=== PATIENT | male | born 1950 | race Caucasian/White ===

== ENCOUNTER 2016-09-14 23:57 | Inpatient (IN) | payer MEDICAID ==
[~2016-09-14] VITALS: Ht 177.8 cm; Wt 65.0 kg
[~2016-09-14 23:57] MED LIST: ACYCLOVIR800 MG PO; ALBUTEROL0.09 MG/A2 IH; ANUHCS PR; ASPIR 8181 MG PO; AZITHROMYCIN250 M1; CAP50 PO; CAPOTEN50 MG PO; COLACE100 MG PO; FEOSOL45 MG PO; FOLIC ACID1 MG PO; GLIPIZIDE5 MG PO; ISONIAZID300 MG PO; METFORMIN HCL850 MG PO; METHOTREXATE2.5 M2 PO; METP PO; MYL80 CH; NATURAL IRON65 MG PO; NEU300 PO; NORCO1 TA1 PO; OMEPRAZOLE DR20 M1 PO; PRILOSEC20 MG PO; PROAIR HFA0.09 MG/A1; PYRIDOXINE HCL50 MG PO; SIMVASTATIN10 M1 PO
[2016-09-15] VITALS (7 sets, daily range): BP systolic 114–161; BP diastolic 60–96
[2016-09-15 00:42] LABS: BASOPHIL % 0.3 % (0-2); PLATELET COUNT 473 x10^3mcL (130-400); RED CELL DISTRIBUTION WIDTH 19.9 % (11.5-14.5)
[2016-09-15 00:55] LABS: CARBON DIOXIDE 26.3 mmol/L (21-32); CHLORIDE SERUM 102 mmol/L (98-107); CREATININE SERUM 1.1 mg/dL (0.7-1.3); GFR1 > 60 mL/min; GLUCOSE SERUM 242 mg/dL (74-106); SODIUM SERUM 138 mmol/L (136-145)
[2016-09-15 01:11] LABS: ALKALINE PHOSPHATASE 78 U/L (46-116); ALT/SGPT 19 U/L (16-63); AST/SGOT 10 U/L (15-37); BILIRUBIN TOTAL 0.2 mg/dL (0.20-1.00)
[2016-09-15 01:12] LABS: ALBUMIN 3.2 g/dL (3.4-5.0); TOTAL PROTEIN, SERUM 8.3 g/dL (6.4-8.2)
[2016-09-15 01:13] LABS: CK-MB 0.6 ng/mL (0-3.6)
[2016-09-15 01:44] LABS: UA SPECIFIC GRAVITY >=1.030 (1.005-1.035); microscopic required? YES; urine erythrocyte 1+ (NEGATIVE)
[2016-09-15 04:22] LABS: CHOLESTEROL/HDL RATIO 3.7; MAGNESIUM 1.3 mg/dL (1.8-2.4)
[2016-09-15 04:23] LABS: FREE T4 1.23 ng/dL (0.76-1.46); FREE THYROXINE INDEX 2.7 ug/dL (1.4-4.5); T4(THYROXINE) 7.6 ug/dL (4.7-13.3)
[2016-09-15 05:07] LABS: T3 TOTAL 0.9 ng/mL
[2016-09-16 05:48] VITALS: BP 116/56
[2016-09-16 06:24] LABS: CALCIUM 8.6 mg/dL (8.5-10.1); CARBON DIOXIDE 23.3 mmol/L (21-32); CHLORIDE SERUM 106 mmol/L (98-107); GFR1 > 60 mL/min; GLUCOSE SERUM 175 mg/dL (74-106); MAGNESIUM 1.6 mg/dL (1.8-2.4); PHOSPHOROUS 3.8 mg/dL (2.5-4.9); POTASSIUM SERUM 4.6 mmol/L (3.5-5.1); SODIUM SERUM 137 mmol/L (136-145)
[2016-09-16 06:36] LABS: PLATELET COUNT 299 x10^3mcL (130-400)
[2016-09-16 07:49] LABS: BASOPHIL % 0 % (0-2); RED CELL DISTRIBUTION WIDTH 19.9 % (11.5-14.5)
[2016-09-16 09:00] VITALS: BP 139/66
[2016-09-16 10:52] LABS: rbc morphology (normal/abnorm) ABNORMAL (NORMAL)
[2016-09-16 12:50] VITALS: BP 139/76
[2016-09-16 16:51] VITALS: BP 142/70
[2016-09-16 17:41] LABS: PLATELET COUNT 392 x10^3mcL (130-400)
[2016-09-16 17:48] LABS: BASOPHIL % 0 % (0-2); RED CELL DISTRIBUTION WIDTH 20.4 % (11.5-14.5)
[2016-09-16 21:44] VITALS: BP 147/75
[2016-09-17 05:58] VITALS: BP 123/73
[2016-09-17 06:19] LABS: BASOPHIL % 0.2 % (0-2); PLATELET COUNT 383 x10^3mcL (130-400)
[2016-09-17 06:40] LABS: CALCIUM 9.2 mg/dL (8.5-10.1); CARBON DIOXIDE 23.2 mmol/L (21-32); CHLORIDE SERUM 104 mmol/L (98-107); CREATININE SERUM 1.1 mg/dL (0.7-1.3); GFR1 > 60 mL/min; GLUCOSE SERUM 156 mg/dL (74-106); MAGNESIUM 2.3 mg/dL (1.8-2.4); PHOSPHOROUS 5.1 mg/dL (2.5-4.9); POTASSIUM SERUM 4.7 mmol/L (3.5-5.1); SODIUM SERUM 138 mmol/L (136-145)
[2016-09-17 08:30] VITALS: BP 141/71
[2016-09-17 12:21] VITALS: BP 150/92
[2016-09-17] MEDS ORDERED: LEVAQUIN750 MG PO (14:03)
[2016-09-17] MEDS ORDERED: CLINDAMYCIN HC300 MG PO (14:04)
[2016-09-17] MEDS ORDERED: LAC PO (14:05)
[2016-09-17] MEDS ORDERED: PROVENTIL0.09 MG/A1 INH (14:07)
[2016-09-17 14:21] VITALS: BP 150/92
== END 2016-09-17 16:15 | disposition home or self-care (01) | DRG 137 ==
LOC: ED 23:57 → MU 09-15 03:38 → DU 09-15 03:38 → MU 09-17 08:14
PROVIDERS: Emergency Medicine; ADMIT Family Medicine
DX: J69.0 Pneumonitis due to inhalation of food and vomit (principal); J96.01 Acute respiratory failure with hypoxia; N17.0 Acute kidney failure with tubular necrosis; E44.0 Moderate protein-calorie malnutrition; E83.42 Hypomagnesemia; D68.69 Other thrombophilia; E11.65 Type 2 diabetes mellitus with hyperglycemia; M94.0 Chondrocostal junction syndrome [Tietze]; K80.20 Calculus of gallbladder without cholecystitis without obstruction; F10.21 Alcohol dependence, in remission; M62.50 Muscle wasting and atrophy, not elsewhere classified, unspecified site; D50.9 Iron deficiency anemia, unspecified; Z86.11 Personal history of tuberculosis; Z79.84 Long term (current) use of oral hypoglycemic drugs; Z87.11 Personal history of peptic ulcer disease; Z68.20 Body mass index [BMI] 20.0-20.9, adult
CPT/HCPCS: 36600; 82962; 83880; 84439; 94150; C9113; J1956; J3475; J3490; J7030; J7620; Q0092; Q9967

== ENCOUNTER 2017-11-17 09:11 | Emergency (ER) | payer MEDICAID ==
[~2017-11-17] VITALS: Ht 180.3 cm; Wt 74.8 kg
[~2017-11-17 09:11] MED LIST changes: +CLINDAMYCIN HC300 MG PO; +LAC PO; +LEVAQUIN750 MG PO; +PROVENTIL0.09 MG/A1 INH
[2017-11-17 09:17] VITALS: Ht 180.3 cm; Wt 74.8 kg
[2017-11-17 11:17] VITALS: BP 118/76
== END 2017-11-17 11:17 | disposition home or self-care (01) ==
LOC: ED 09:11
DX: R10.30 Lower abdominal pain, unspecified (principal); K21.9 Gastro-esophageal reflux disease without esophagitis; I10 Essential (primary) hypertension; E11.9 Type 2 diabetes mellitus without complications

== ENCOUNTER 2018-08-10 19:02 | Inpatient (IN) | payer MEDICAID ==
[~2018-08-10] VITALS: Ht 177.8 cm; Wt 72.6 kg
--- NOTE | 2018-08-10 19:14 | NUR ---
PT'S CARE ASSUMED AT THIS TIME.
[2018-08-10 19:54] LABS: CALCIUM 9.2 mg/dL (8.5-10.1); CARBON DIOXIDE 27.4 mmol/L (21-32); CREATININE SERUM 1.3 mg/dL (0.7-1.3); POTASSIUM SERUM 4.3 mmol/L (3.5-5.1)
[2018-08-10 19:59] LABS: ALBUMIN 3.4 g/dL (3.4-5.0); BILIRUBIN TOTAL 0.14 mg/dL (0.20-1.00); TOTAL PROTEIN, SERUM 7.5 g/dL (6.4-8.2)
--- NOTE | 2018-08-10 20:20 | NUR ---
PT AAOX3, VSS, SPEAKS IN FULL CLEAR SENTENCES, BREATHING EASY AND UNLABORED. PT REPORTA RELIEF FROM PAIN POST MED ADMINISTRATION AT THIS TIME. NO OBVIOUS SIGNS OF DISTRESS. WILL CONTINUE TO MONITOR. DAUGHTER REMAINS AT BEDSIDE.
[2018-08-10 20:28] LABS: BASOPHIL % 0.5 % (0-2); PLATELET COUNT 321 x10^3mcL (130-400)
[2018-08-10 20:29] LABS: RED CELL DISTRIBUTION WIDTH 17.3 % (11.5-14.5)
--- NOTE | 2018-08-10 20:57 | NUR ---
PT ADMITTED (TELE) - REPORT CALLED TO MARGARITA CONN. OPPORTUNITY GIVEN TO ASK QUESTIONS. PT BEING TRANSFERRED TO FLOOR BY RN. PT'S CARE COMPLETED AT THIS TIME BY THIS RN.
[2018-08-10 21:21] LABS: CHOLESTEROL/HDL RATIO 3.5; MAGNESIUM 1.6 mg/dL (1.8-2.4); PHOSPHOROUS 3.5 mg/dL (2.5-4.9)
[2018-08-10 21:26] LABS: microscopic required? YES; urine erythrocyte 1+ (NEGATIVE)
[2018-08-10 21:27] VITALS: BP 141/66
[2018-08-10 21:27] LABS: T3 TOTAL 0.84 ng/mL
--- NOTE | 2018-08-10 21:27 | NUR ---
PATIENT RECEIVED FROM ED VIA [facility]ERNEY ACCOMPANIED BY RN AND WITH DAUGHTER. PATIENT ASSISTED IN BED AND MADE COMFORTABLE. INTRODUCE SELF AND UPHOLSTERY SEWER, PATIENT ACQUIANTED TO BEDSIDE EQUIPMENTS AND UNIT POLICIES. CALL LIGHT PLACED IN REACH.VP CONSTRUCTION APPLIED TP CHEST, TELE#12 NSR, PATIENT INFORMED ABOUT PURPOSE OF VP CONSTRUCTION. SAFETY PRECAUTIONS INITIATED. DENIES CHEST PAINS THIS TIME. WILL CONTINUE TO MONITOR.
[2018-08-10 21:28] LABS: FREE T4 1.01 ng/dL (0.76-1.46); FREE THYROXINE INDEX 2.6 ug/dL (1.4-4.5); T4(THYROXINE) 7.1 ug/dL (4.7-13.3)
--- NOTE | 2018-08-10 21:28 | NUR ---
PT SEEN SITTING ON THE EDGE OF THE BED, CAME IN DUE TO DIZZINESS AND CHEST PAIN. AAOX4. DENIES HEADACHE/DIZZINESS. NO FACIAL DROOP. SPEECH IS CLEAR. NO SOB NOTED, O2 SAT=95%, RA. DENIES CHEST PAIN/PRESSURE, NSR ON THE MONITOR. W/ RLE TRACE EDEMA AND +1 EDEMA ON LLE. W/ LUE DEFORMITY, W/ LIMITED ROM ON LUE. 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 ABDOMEN IS SOFT. BOWEL SOUNDS ACTIVE. VOIDS. IV SITE ON THE RFA GAUGE 20 IS PATENT AND INTACT. SIDE RAILS UPX2. CALL LIGHT ON REACH. DAUGHTER AT BEDSIDE. PRIMARY NURSE MARGARITA AT BEDSIDE FOR CONTINUITY OF CARE
[2018-08-10 21:31] VITALS: Ht 177.8 cm; Wt 72.6 kg
[2018-08-10] MEDS ORDERED: METFORMIN HCL850 MG PO (21:34)
[2018-08-10] MEDS ORDERED: GLUCOTROL5 MG PO (21:34)
[2018-08-10] MEDS ORDERED: NEU300 PO (21:35)
[2018-08-10] MEDS ORDERED: CAPTOPRIL50 MG PO (21:35)
[2018-08-10] MEDS ORDERED: FERROUS SULFAT325 M2 PO (21:35)
[2018-08-10] MEDS ORDERED: RANITIDINE HCL150 M1 PO (21:35)
[2018-08-10 21:37] LABS: AMPHETAMINE QUAL UR NONE DETECTED (See below)
--- NOTE | 2018-08-10 22:13 | NUR ---
DR CASON AT BEDSIDE, UPDATING PATIENT AND DAUGHTER ABOUT TREATMENT PLANS.
--- NOTE | 2018-08-10 22:35 | NUR ---
MAG OX 1 TAB GIVEN FOR MAG LEVEL 1.6. PATIENT AND DAUGHTER INFORMED ABOUT PURPOSE .TOOK PILLS WELL.
--- NOTE | 2018-08-11 | NUR ---
PATIENT RESTING COMFORTABLY THIS TIME. DENIED CHEST PAINS, SR ON THE MONITOR. REFUSED NEURONTIN. SAFETY MAINTAINED. WILL CONTINUE TO MONITOR.
--- NOTE | 2018-08-11 02:14 | NUR ---
RESTING COMFORTABLY THIS TIME NO DISTRESS. SR ON THE MONITOR. WILL CONTINUE TO MONITOR.
--- NOTE | 2018-08-11 04:04 | NUR ---
patient had a run of v-tach at 0250 and was just reported by monitor to me just now, patient bp checked was 114/59, map=74, hr=73, patient denied chest discomforts nor pain, showed strip to dr. lundberg. will continue to monitor.
[2018-08-11 05:26] VITALS: BP 117/57
--- NOTE | 2018-08-11 05:56 | NUR ---
PATIENT STATED SLEPT WELL AND RESTED GOOD SINCE ARRIVAL TO THE FLOOR. DENIED CHEST PAINS, NSR ON THE MONITOR. HEPLOCK FLUSHED WELL.SAFETY PRECAUTION OBSERVED AND MAINTAINED. WILL ENDORSE CONTINUITY OF CARE TO INCOMING NURSE.
[2018-08-11 06:15] LABS: CARBON DIOXIDE 26.5 mmol/L (21-32); CREATININE SERUM 1.3 mg/dL (0.7-1.3); MAGNESIUM 1.5 mg/dL (1.8-2.4); POTASSIUM SERUM 4.4 mmol/L (3.5-5.1)
[2018-08-11 06:17] LABS: BASOPHIL % 0.9 % (0-2); PLATELET COUNT 283 x10^3mcL (130-400)
[2018-08-11 06:26] LABS: RED CELL DISTRIBUTION WIDTH 16.9 % (11.5-14.5)
--- NOTE | 2018-08-11 07:09 | NUR ---
BEDSIDE REPORT AND HANDS OFF PERFORMED WITH INCOMING NURSE CASIE.
--- NOTE | 2018-08-11 07:30 | NUR ---
PATIENT RESTING IN BED, PATIENT DENIES CHEST PAIN. TELE MONITOR IN PLACE. NO ACUTE RESP DISTRESS NOTED, PATIENT ON ROOM AIR. GENERALIZED WEAKNESS NOTED. IV TO RFA SALINE LOCK, NO REDNESS, SWELLING OR PAIN NOTED. CALL LIGHT WITHIN REACH, BED IN LOW POSITION, WILL CONTINUE TO MONITOR FOR CHANGES.
--- NOTE | 2018-08-11 09:03 | NUR ---
HELD CAPTOPRIL, PATIENT DBP <70. DR SPANGLER AWARE. WILL CONTINUE TO MONITOR PATIENT. CALL LIGHT WITHIN REACH, BED IN LOW POSITION FOR SAFETY PRECAUTION.
[2018-08-11 09:41] VITALS: BP 127/64
--- NOTE | 2018-08-11 12:28 | NUR ---
HELD CAPTOPRIL PATIENT DBP <70. BP: 128/62 HR:66 MAP: 73. DR SPANGLER AWARE. NO ACUTE DISTRESS NOTED. PATIENT DENIES PAIN. CALL LIGHT WITHIN REACH, BED IN LOW POSITION FOR SAFETY PRECAUTION. WILL CONTINUE TO MONITOR FOR CHANGES.
[2018-08-11 12:29] VITALS: BP 124/65
[2018-08-11 15:21] VITALS: BP 124/65
[2018-08-11 17:25] VITALS: BP 127/69
--- NOTE | 2018-08-11 18:10 | NUR ---
PATIENT WAS DISCHARGE HOME, DAUGHTER AT SIDE. NO ACUTE CHANGES THROUGH OUT SHIFT, PATIENT IS STABLE, AND DENIES PAIN AT THIS TIME. PATIENT WAS TAKEN DOWN VIA WHEELCHAIR WITH DIRECTOR FUNDRAISING, FOR SAFETY PRECAUTION. PATIENT RECEIVED COPY OF DISCHARGE INSTRUCTIONS, PATIENT VERBALIZES UNDERSTANDING AND AGREES WITH D/C PLAN AND INSTRUCTIONS, INCLUDING MEDICATIONS AND FOLLOW UP CARE. PATIENT TOOK ALL PERSONAL BELONGINGS HOME, ALL QUESTIONS AND CONCERNS ADDRESSED. TELE MONITOR AND ARMBANDS REMOVED. IV TO RFA REMOVED, CATH INTACT.
== END 2018-08-11 18:54 | disposition home or self-care (01) | DRG 243 ==
LOC: ED 19:02 → DU 20:39
PROVIDERS: Emergency Medicine; ADMIT Internal Medicine
DX: K21.9 Gastro-esophageal reflux disease without esophagitis (principal); N17.0 Acute kidney failure with tubular necrosis; E44.1 Mild protein-calorie malnutrition; E11.65 Type 2 diabetes mellitus with hyperglycemia; E83.42 Hypomagnesemia; I49.3 Ventricular premature depolarization; I10 Essential (primary) hypertension; M06.9 Rheumatoid arthritis, unspecified; R80.9 Proteinuria, unspecified; D64.9 Anemia, unspecified; M19.90 Unspecified osteoarthritis, unspecified site; Z86.11 Personal history of tuberculosis; Z68.25 Body mass index [BMI] 25.0-25.9, adult; Z79.84 Long term (current) use of oral hypoglycemic drugs
CPT/HCPCS: 82962; 84439; Q0092